=== PATIENT | male | born 1980 | race Two or more races ===

== ENCOUNTER 2025-02-06 22:11 | Inpatient (IN) | payer OTHER ==
[~2025-02-06] VITALS: Ht 182.9 cm; Wt 100.0 kg
[2025-02-06 22:42] LABS: BASOPHILS % (AUTO) 0.6 % (0.0-2.0); EOSINOPHILS % (AUTO) 7.8 % (1.0-6.0); HEMATOCRIT 37.8 % (41-53); LYMPHOCYTES # (AUTO) 1.9 K/uL (1.0-4.8); LYMPHOCYTES % (AUTO) 22.8 % (22.0-44.0); MEAN CORPUSCULAR HEMOGLOBIN 28.1 pg (26.0-34.0); MEAN CORPUSCULAR HGB CONC 34.3 G/dL (31.0-37.0); MEAN CORPUSCULAR VOLUME 82 fL (80-100); MONOCYTES # (AUTO) 0.6 K/uL (0.1-1.0); MONOCYTES % (AUTO) 7.7 % (2.0-9.0); NEUTROPHILS # (AUTO) 5.1 K/uL (1.8-7.7); NEUTROPHILS % (AUTO) 61.1 % (40.0-70.0); PLATELET COUNT (AUTO) 221 K/uL (150-450); RED BLOOD CELL COUNT(AUTO) 4.62 MIL/uL (4.50-5.90); WHITE BLOOD COUNT (AUTO) 8.3 K/uL (4.5-11.0)
[2025-02-06 22:53] LABS: ANION GAP 2 mmol/L (8-16); CALCIUM, TOTAL 8.6 mg/dL (8.8-10.5); CARBON DIOXIDE 29 mmol/L (22-29); CHLORIDE 107 mmol/L (98-107); CREATININE 0.91 mg/dL (0.60-1.30); GLOMERULAR FILTR. RATE CALC > 60 mL/min (>60); GLUCOSE,RANDOM 96 mg/dL (70-110); POTASSIUM 3.8 mmol/L (3.5-5.1); SODIUM SERUM 138 mmol/L (136-145); UREA NITROGEN, BLOOD 17 mg/dL (7-18)
[2025-02-06 22:56] LABS: ALCOHOL, BLOOD (SERUM) < 3 mg/dL (0-10)
[2025-02-06 22:58] LABS: ALANINE AMINOTRANSFERASE 44 U/L (12-78); ALBUMIN 3.3 g/dL (3.4-5.0); ALKALINE PHOSPHATASE 48 U/L (46-116); ASPARTATE AMINOTRANSFERASE 28 U/L (15-37); BILIRUBIN,TOTAL 0.5 mg/dL (0.1-1.0); TOTAL PROTEIN, SERUM 6.9 g/dL (6.4-8.2)
[2025-02-06] MEDS: ACETAMINOPHEN 500 MG TABLET PO ONE (23:57)
[2025-02-06] MEDS: ALBUTEROL SULFATE HFA 90 MCG/PUFF 8 GM INHALER IH ONE (23:58)
[2025-02-06] MEDS: IBUPROFEN 600 MG TABLET PO ONE (23:58)
[2025-02-07] MEDS ORDERED: BISACODYL 10 MG RECTAL RECTAL SUPPOSITORY PR PRN (06:15)
[2025-02-07] MEDS ORDERED: LOPERAMIDE HCL 2 MG CAPSULE PO PRN (06:15)
[2025-02-07] MEDS ORDERED: ONDANSETRON HCL 4 MG/2 ML VIAL IVP PRN (06:15)
[2025-02-07] MEDS ORDERED: ZOLPIDEM TARTRATE 5 MG TABLET PO PRN (06:15)
[2025-02-07] MEDS ORDERED: MAGNESIUM HYDROXIDE SUSPENSION 30 ML UDCUP PO PRN (06:15)
[2025-02-07] MEDS ORDERED: DICYCLOMINE HCL 10 MG CAPSULE PO PRN (06:15)
[2025-02-07] MEDS ORDERED: METOCLOPRAMIDE HCL 5 MG/ML 2 ML VIAL IVP PRN (06:15)
[2025-02-07] MEDS ORDERED: LORazepam 2 MG/ML VIAL IVP PRN (06:15)
[2025-02-07] MEDS ORDERED: ALBUTEROL SULFATE 2.5 MG/0.5 ML NEB SOLUTION NEB PRN (06:15)
[2025-02-07] MEDS: HEPARIN SODIUM,PORCINE 5,000 UNITS/ML VIAL SQ SCH (08:32)
[2025-02-07] MEDS: DOCUSATE SODIUM 100 MG CAPSULE PO SCH (08:33)
[2025-02-07] MEDS: PANTOPRAZOLE SODIUM 40 MG DR TABLET PO SCH (08:33)
[2025-02-07 16:24] VITALS: BP 121/69; PULSE 69; RESP 16; O2SAT 98
[2025-02-07 20:57] VITALS: BP 123/70; PULSE 64; RESP 18; TEMP 98.2; O2SAT 97
[2025-02-07] MEDS: TEMAZEPAM 15 MG CAPSULE PO SCH (21:58)
[2025-02-08 08:06] VITALS: BP 125/81; PULSE 57; RESP 19; TEMP 97.5; O2SAT 99
[2025-02-08 19:19] VITALS: BP 121/72; PULSE 63; RESP 18; TEMP 97.9; O2SAT 97
[2025-02-09 04:18] VITALS: BP 116/69; PULSE 55; RESP 18; TEMP 98.1; O2SAT 96
[2025-02-09 08:00] VITALS: BP 123/83; PULSE 57; RESP 18; TEMP 97.5; O2SAT 98
[2025-02-09] MEDS ORDERED: HYDR25TA83 PO (12:35)
[2025-02-09] MEDS: HydrOXYzine HCL 25 MG TABLET PO ONE (17:33)
[2025-02-09 19:22] VITALS: BP 127/72; PULSE 60; RESP 18; TEMP 97.7; O2SAT 97
== END 2025-02-09 22:00 | DRG 392 ==
LOC: EMS 22:11 → EDH 02-07 06:08 → ICUN 02-07 07:10 → 6S 02-07 20:55
PROVIDERS: ADMIT Internal Medicine; ATTEND Internal Medicine
DX: R11.0 Nausea (principal); F15.23 Other stimulant dependence with withdrawal; R19.7 Diarrhea, unspecified; Z88.0 Allergy status to penicillin; J45.909 Unspecified asthma, uncomplicated; F41.9 Anxiety disorder, unspecified
CPT/HCPCS: 80048; 80076; 85025; 99285; G0480; J1644; J2060; J3535